=== PATIENT | female | born 1990 | race Caucasian/White ===

== ENCOUNTER 2017-08-02 19:42 | Emergency (ER) | payer MEDICAID, OTHER ==
[2017-08-02 19:42] VITALS: BMI 21.4
[2017-08-02 20:20] VITALS: BP 101/66
--- NOTE | 2017-08-02 20:52 | C.PDOC ---
History Of Present Illness <Deborah Campoverde - Last Filed: 08/02/17 21:10> <Jacobo Rajan - Last Filed: 08/02/17 23:25> CC: "abdominal pain" HPI: 27 year old female with past medical history of sickle cell trait who presents to the ED for RLQ pain. She states the pain started 2 days ago and it is a burning pain. The pain radiates to her right lower back. The pain is currently 7/10 and it has been an 8/10 at its worst and 5/10 and its best. She has taken 500mg of Advil with no relief. She denies nausea, vomiting, dysuria, hematuria, diarrhea, constipation, or fever. She states she saw her PMD today who told her to come to the ED and be evaluated. PMD: Dr. Gene Klein Past Medical History: Sickle cell trait Past Surgical History: denies Medications: Folic Acid Allergies: NKDA (Deborah Campoverde) History Per: Patient History/Exam Limitations: no limitations Onset/Duration Of Symptoms: Days Current Symptoms Are (Timing): Still Present Severity: Moderate Pain Scale Rating Of: 7 Radiation Of Pain To:: Back Quality Of Discomfort: Burning <Deborah Campoverde - Last Filed: 08/02/17 21:10> Exacerbating Factors: None Last Bowel Movement: Yesterday Recent travel outside of the [place]: No Additional History Per: Patient Abnormal Vaginal Bleeding: No <Jacobo Rajan - Last Filed: 08/02/17 23:25> Chief Complaint (Nursing): Abdominal Pain Past Medical History Family History: States: No Known Family Hx - Social History Hx Alcohol Use: No Hx Substance Use: No - Immunization History Hx Tetanus Toxoid Vaccination: No Hx Influenza Vaccination: No Hx Pneumococcal Vaccination: No <Deborah Campoverde - Last Filed: 08/02/17 21:10> Vital Signs: Last Vital Signs Temp 98.2 F 08/02/17 20:16 Pulse 63 08/02/17 20:16 Resp 18 08/02/17 20:16 BP 101/66 08/02/17 20:16 Pulse Ox 100 08/02/17 21:10 Review Of Systems Constitutional: Negative for: Fever, Chills Cardiovascular: Negative for: Chest Pain, Palpitations Respiratory: Negative for: Cough, Shortness of Breath Gastrointestinal: Positive for: Abdominal Pain (RLQ pain ). Negative for: Nausea, Vomiting, Diarrhea, Constipation Genitourinary: Negative for: Dysuria, Hematuria Musculoskeletal: Positive for: Back Pain (right lower back pain) <Deborah Campoverde - Last Filed: 08/02/17 21:10> Physical Exam - Physical Exam Appears: Non-toxic, No Acute Distress Skin: Normal Color, Warm Eye(s): bilateral: Normal Inspection, PERRL, EOMI Oral Mucosa: Moist Cardiovascular: Rhythm Regular, No Murmur Respiratory: Normal Breath Sounds, No Decreased Breath Sounds, No Rales, No Rhonchi, No Wheezing Gastrointestinal/Abdominal: Bowel Sounds (normal), Soft, Tenderness (RLQ tenderness), No Distention, No Guarding, No Rebound Back: No CVA Tenderness, Paraspinal Tenderness (right lower back tenderness ) Neurological/Psych: Oriented x3, Normal Speech, Normal Cognition <Deborah Campoverde - Last Filed: 08/02/17 21:10> ED Course And Treatment O2 Sat by Pulse Oximetry: 100 <Deborah Campoverde - Last Filed: 08/02/17 21:10> - Laboratory Results Result Diagrams: 08/02/17 21:46 08/02/17 21:46 Pulse Ox Interpretation: Normal Reevaluation Time: 23:20 Reassessment Condition: Improved <Jacobo Rajan - Last Filed: 08/02/17 23:25> Medical Decision Making <Deborah Campoverde - Last Filed: 08/02/17 21:10> <Jacobo Rajan - Last Filed: 08/02/17 23:25> Medical Decision Making: RLQ Abdominal Pain - f/u UA - f/u CT abdomen and pelvis - f/u cbc - f/u cmp (Deborah Campoverde) Disposition <Deborah Campoverde - Last Filed: 08/02/17 21:10> Counseled Patient/Family Regarding: Studies Performed, Diagnosis, Need For Followup, Rx Given - Disposition Disposition Time: 23:20 <Jacobo Rajan - Last Filed: 08/02/17 23:25> - Disposition Referrals: [facility] [place] [Outside] [facility] [Outside] Disposition: HOME/ ROUTINE Condition: FAIR Additional Instructions: Please return if symptoms recur Prescriptions: Polyethylene Glycol 3350 [Miralax] 17 gm PO DAILY #270 ml Instructions: Colic (DC), Constipation, Adult (DC) Forms: [employer] (Amharic) - Clinical Impression Clinical Impression: Abdominal pain, Constipation - 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 MD/DO has examined the patient and agrees with the treatment plan. <Deborah Campoverde - Last Filed: 08/02/17 21:10>
[2017-08-02] MEDS ORDERED: Iodixanol 320 MG/ML 100 ML BOTTLE IV ONE (21:29)
[2017-08-02 21:58] LABS: BASO # 0.1 K/uL (0.0-0.2); BASO % 0.7 % (0.0-2.0); EOS # 0.2 K/uL (0.0-0.7); HEMOGLOBIN 13.9 g/dL (11.0-16.0); LYMPH # 2.9 K/uL (1.0-4.3); LYMPH % 37.2 % (20.0-40.0); MEAN CELL VOLUME 83.1 fL (81.0-99.0); MEAN CORPUSCULAR HEMOGLOBIN 28.6 pg (27.0-31.0); MEAN CORPUSCULAR HGB CONC 34.4 g/dL (33.0-37.0); MEAN PLATELET VOLUME 9.3 fL (7.2-11.7); MONO # 0.6 K/uL (0.0-0.8); MONO % 7.8 % (0.0-10.0); NEUT # 4.1 K/uL (1.8-7.0); NEUT % 52.3 % (50.0-75.0); RBC 4.86 Mil/uL (3.80-5.20); RED CELL DISTRIBUTION WIDTH 13.8 % (11.5-14.5); WHITE BLOOD COUNT 7.8 K/uL (4.8-10.8)
[2017-08-02 22:02] LABS: ALB/GLOB RATIO 1.1 (1.0-2.1); ALBUMIN 4.4 g/dL (3.5-5.0); ALT/SGPT 25 U/L (9-52); AST/SGOT 20 U/L (14-36); BLOOD UREA NITROGEN 17 mg/dL (7-17); CALCIUM 9.7 mg/dl (8.6-10.4); GFR AFRICAN-AMERICAN > 60; GFR NON-AFRICAN AMERICAN > 60
[2017-08-02 22:07] LABS: SQUAMOUS EPITHIAL 1 /hpf (0-5); URINE BILIRUBIN NEGATIVE (NEGATIVE); URINE BLOOD NEGATIVE (NEGATIVE); URINE CLARITY Clear (Clear); URINE COLOR Yellow (YELLOW); URINE GLUCOSE (UA) NORMAL (Normal); URINE LEUKOCYTE ESTERASE NEG Leu/uL (Negative); URINE NITRATE NEGATIVE (NEGATIVE); URINE PROTEIN NEGATIVE (NEGATIVE); URINE UROBILINOGEN NORMAL mg/dL (0.2-1.0)
--- NOTE | 2017-08-02 23:00 | CT ---
EXAM: CT Abdomen and Pelvis With Intravenous Contrast EXAM DATE/TIME: 08/02/2017 8:56 PM CLINICAL HISTORY: 27 years old, female; Pain; Abdominal pain; Localized; Right lower quadrant (rlq); Additional info: Rlq pain TECHNIQUE: Axial computed tomography images of the abdomen and pelvis with intravenous contrast. All CT scans at this facility use one or more dose reduction techniques, viz.: automated exposure control; ma/kV adjustment per patient size (including targeted exams where dose is matched to indication; i.e. head); or iterative reconstruction technique. Coronal and sagittal reformatted images were created and reviewed. CONTRAST: 100 mL of visipaque 320 administered intravenously. COMPARISON: There are no prior studies for comparison. FINDINGS: Lower thorax: Heart size is normal. There is minimal dependent atelectasis at the lung bases ABDOMEN: Liver: There is fatty infiltration of the liver. Gallbladder and bile ducts: unremarkable Pancreas: unremarkable Spleen: unremarkable Adrenals: unremarkable Kidneys and ureters: unremarkable Stomach and bowel: Stomach is partially distended. Rotation is normal. R. small bowel is mildly distended with fluid and air. There is no obstruction. Terminal ileum is unremarkable. Appendix is not visualized.There is no pericecal inflammation. There is moderate stool in the colon. Appendix: See stomach and bowel PELVIS: Bladder: unremarkable Reproductive: There is an IUD in uterus. Adnexa are unremarkable. ABDOMEN and PELVIS: Intraperitoneal space: There is no free air. There is no free fluid. Bones/joints: There are no acute osseous abnormalities. Soft tissues: unremarkable Vasculature: Vascular structures are unremarkable. Lymph nodes: There is no pathologic adenopathy. There are small shotty mesenteric nodes in the right lower quadrant. IMPRESSION: No acute solid visceral or bowel abnormality; nonvisualization of the appendix but no periods cecal inflammatory change; IUD the uterus
[2017-08-03 00:08] VITALS: PULSE 70; RESP 20; TEMP 98; O2SAT 98
== END 2017-08-03 00:06 | disposition home or self-care (01) ==
LOC: C.ER 19:42
DX: K59.00 Constipation, unspecified (principal); R10.31 Right lower quadrant pain; D57.3 Sickle-cell trait
CPT/HCPCS: 74177; 80053; 81001; 85025; 99283; Q9967